=== PATIENT | female | born 1980 | race Two or more races ===

== ENCOUNTER → 2024-11-02 | Outpatient (CLI) | payer BC, SELFPAY ==
--- NOTE | 2024-11-02 16:01 | XR_ITS ---
Examination: Nasal bones 3 views TECHNIQUE: Guzman, right and left lateral nasal bones 3 views Exam date and time: November 02, 2024 1615 hours INDICATIONS: Injury to the nose today, nose pain FINDINGS: Orbital rims appear intact No blood in the maxillary antra No nasal bone fractures IMPRESSION: No nasal bone fracture
== END | disposition home or self-care (01) ==
LOC: CDIM 15:55
PROVIDERS: PCP Family Medicine; Referring Provider Student in an Organized Health Care Education/Training Program; Visit Provider Student in an Organized Health Care Education/Training Program
DX: S09.92XA Unspecified injury of nose, initial encounter (principal); X58.XXXA Exposure to other specified factors, initial encounter
CPT/HCPCS: 70160

== ENCOUNTER → 2024-12-20 | Outpatient (CLI) | payer BC, SELFPAY ==
--- NOTE | 2024-12-20 16:30 | XR_ITS ---
Examination: CT maxillofacial, without intravenous contrast. 2-D sagittal reconstructions. 3-D reconstructions. Date and time of exam:December 20, 2024 1701 hours INDICATIONS: Chronic sinus pressure and pain infection 7 years CTDI: vol (mGy):7.19 DLP: (mGycm):105 Technique: Multiple axial images of maxillofacial region, 3.0 mm slice thickness. 2-D sagittal and coronal reconstructions. 3-D reconstructions. Low dose protocols were performed. One or more of the following dose reduction techniques were used; automated exposure control, adjustment of the mA and/or KV according to patient size, use of iterative reconstruction technique. Findings: Trace mucosal thickening frontal air cells Prominent mucosal disease in the ethmoid air cells including the ostiomeatal complexes Mucosal disease up to 10 mm in the maxillary antra with small fluid collections Significant sphenoid sinus disease Mild hypertrophy inferior nasal turbinates and left middle turbinate Negative for otitis media Negative for nasopharyngeal mass IMPRESSION: Pansinusitis, severe ethmoid air cells.
== END | disposition home or self-care (01) ==
PROVIDERS: Referring Provider Otolaryngology; Visit Provider Otolaryngology
DX: J32.4 Chronic pansinusitis (principal)
CPT/HCPCS: 70486